=== PATIENT | female | born 1965 | race Asian ===

== ENCOUNTER 2017-02-20 03:49 | Emergency (ER) | payer OTHER ==
--- NOTE | ~2017-02-20 | ER ---
[facility]GE[facility] 51 Y [address] ROOM: [place] [address] LOCATION: ED ADMIT DATE: 02/20/2017 ER/Outpatient Report DISCHARGE DATE: 02/20/2017 FAMILY PHYSICIAN: Tushar Ghosh MD ATTENDING PHYSICIAN: Sara Truong Time of Arrival: 0349 hours. Time of Evaluation: 0413 hours. IDENTIFICATION: A 51-year-old female. CHIEF COMPLAINT: Cold, can not get warm, trouble breathing. HISTORY OF PRESENT ILLNESS: The patient has had chills and body aches since Wednesday. She has had some burning with urination. It is actually improved at this point, and she has had some constipation. She has had no cough but some shortness of breath. ALLERGIES: PENICILLIN. CURRENT MEDICATIONS: 1. Synthroid. 2. Lipitor. MEDICAL PROBLEMS: Hypothyroidism, hyperlipidemia, paroxysmal atrial fibrillation, peptic ulcer disease, and thyroid nodules. PRIOR SURGERIES: Thyroid surgery and cardiac ablation. SOCIAL HISTORY: The patient is . Lives here in [place]. Works at [employer]. Tobacco use, denies. Alcohol use, denies. Drug use, denies. REVIEW OF SYSTEMS: All systems reviewed and negative other than what is noted in the HPI other than left menstrual period 2 years ago. PE: Vital signs--see nursing notes. HEENT: Unremarkable Lungs: CTA Cor: RRR Abd: Soft, nondistended. Minimally tender to palpation lower abdomen. No rebound or guarding. Ext: No edema Neuro: No focal findings. EMERGENCY DEPARTMENT COURSE: The patient did take Advil 2 tablets at 0300 hours, and IV 1 L of normal saline was given. [facility] AGE: 51 Y [address] ROOM: [place] [address] LOCATION: [facility] ADMIT DATE: 02/20/2017 ER/Outpatient Report DISCHARGE DATE: 02/20/2017 FAMILY PHYSICIAN: Tushar Ghosh MD ATTENDING PHYSICIAN: Sara Truong LABORATORY DATA AND X-RAYS: Procalcitonin less than 0.05. Hemoglobin 12.8, hematocrit 38, platelets 205, white count 10.9 with 85% neutrophils. Lactate 1.9. UA: Specific gravity 1.015, pH 5, leukocytes positive, nitrites positive, 20-50 white blood cells, 5-10 red blood cells, 5-10 epithelial cells, many bacteria. Urine culture is pending. Blood cultures x2 are pending. Sodium 143, potassium 3.9, chloride 108, CO2 of 24, BUN 15, creatinine 1, blood sugar 124. Total bilirubin elevated at 1.7. Chest x-ray one-view, no acute process. Pending Radiology over-read. IMPRESSION: Urinary tract infection PLAN: Levaquin 500 mg IV given here, 500 mg p.o. daily for 7 days starting on Wednesday. Fluids and rest. Tylenol or Advil for pain. Follow up with Dr. Ghosh in 3 to 7 days. Follow up sooner if any problems or concerns. The patient does not meet any SIRS or sepsis criteria. The patient understands and is in agreement, and all questions have been answered. SARA TRUONG MD CAR/modl /[id number] d: 02/20/17 2346 t: 02/28/17 0711, OUTPATIENT REPORT
[2017-02-20 04:28] LABS: COLOR URINE YELLOW (YELLOW); GLUCOSE URINE NEGATIVE (NEGATIVE); LEUKOCYTES URINE 500 /UL (NEGATIVE); NITRITE URINE POSITIVE (NEGATIVE); PROTEIN URINE 30 mg/dL (NEGATIVE); SPEC GRAVITY URINE 1.015 (1.003-1.035); TURBIDITY URINE 2+ (CLEAR)
[2017-02-20 04:29] LABS: BILIRUBIN URINE NEGATIVE (NEGATIVE); BLOOD URINE 50 /UL (NEGATIVE); KETONE URINE NEGATIVE (NEGATIVE); UROBILINOGEN URINE NORMAL (NORMAL)
[2017-02-20 04:33] LABS: BACTERIA URINE MANY (NEGATIVE); WBC URINE 20-50 #/HPF (NEGATIVE)
[2017-02-20 04:44] LABS: BASOPHIL # 0.1 K/uL (0.0-0.2); BASOPHIL % 0.5 %; EOSINOPHIL # 0.2 K/uL (0.0-0.5); EOSINOPHIL % 1.4 %; HEMOGLOBIN 12.8 g/dL (10.0-15.0); IMMATURE GRANULOCYTE % 0.3 %; LYMPHOCYTE # 0.9 K/uL (0.8-4.0); LYMPHOCYTE % 8.2 %; MCH 31.5 pg (27.0-34.0); MCHC 33.7 gm/dL (32.0-36.5); MCV 93.6 fl (83.0-98.0); MONOCYTE # 0.5 K/uL (0.0-1.0); MONOCYTE % 4.5 %; MPV 9.5 fl (9.4-12.4); NEUTROPHIL # (ANC) 9.2 K/uL (1.8-7.8); NEUTROPHIL % 85.1 %; NRBC % 0 /100WBC (0-0.00); PLATELET COUNT 205 K/uL (150-450); RBC 4.06 M/uL (3.50-5.50); RDW-CV 11.4 % (11.9-14.6); WBC 10.9 K/uL (4.0-11.0)
[2017-02-20 05:07] LABS: ALBUMIN 3.5 gm/dL (3.5-5.0); ANION GAP 14.9 (10.0-19.0); CALCIUM 8.7 mg/dL (8.5-10.5); POTASSIUM 3.9 mMol/L (3.7-5.1); TOTAL BILIRUBIN 1.7 mg/dL (0.0-1.5); TOTAL PROTEIN 7.1 g/dL (6.0-8.4)
== END 2017-02-20 06:24 | disposition disaster alternative care site (69) ==
LOC: GMED 03:49
PROVIDERS: Family Medicine
DX: N39.0 Urinary tract infection, site not specified (principal); M79.1 Myalgia; Z88.0 Allergy status to penicillin; Z88.8 Allergy status to other drugs, medicaments and biological substances; E03.9 Hypothyroidism, unspecified; E78.5 Hyperlipidemia, unspecified; I48.0 Paroxysmal atrial fibrillation; K27.7 Chronic peptic ulcer, site unspecified, without hemorrhage or perforation
CPT/HCPCS: J1956; J7030